=== PATIENT | female | born 1945 | race Caucasian/White ===

== ENCOUNTER 2018-05-29 09:45 | Outpatient (CLI) | payer MEDICARE, BC ==
--- NOTE | 2018-05-29 10:41 | MMO ---
Bilateral MAMMO Bilat Screen [facility]. CLINICAL HISTORY: Patient is 72 years old and is seen for screening. The patient has no family history of breast cancer. The patient has no personal history of cancer. The patient has a history of left Excisional Biopsy in 1974 - BENIGN FINDINGS and left Excisional Biopsy in 1981 - BENIGN FINDINGS. VIEWS: The views performed were: bilateral craniocaudal with tomosynthesis and bilateral mediolateral oblique with tomosynthesis. FILMS COMPARED: The present examination has been compared to prior imaging studies performed at [facility] on 12/09/2000, 06/09/2001, 12/09/2001, 12/10/2002, 01/24/2004, 02/20/2005, 03/12/2006, 03/27/2007, 03/31/2008, 04/15/2009, 04/17/2010, 04/24/2011, 04/29/2012, 05/14/2014, 06/13/2015 and 01/07/2017. MAMMOGRAM FINDINGS: The breasts are heterogeneously dense, which could obscure a lesion on mammography. There are benign appearing calcifications seen in both breasts. There are no suspicious masses, calcifications or areas of architectural distortion. IMPRESSION: CALCIFICATIONS IN BOTH BREASTS ARE BENIGN. A ROUTINE FOLLOW-UP MAMMOGRAM IN 1 YEAR IS RECOMMENDED. THE RESULTS OF THIS EXAM WERE SENT TO THE PATIENT. ACR BI-RADS Category 2 - Benign finding MAMMOGRAPHY NOTE: 1. A negative mammogram report should not delay a biopsy if a dominant of clinically suspicious mass is present. 2. Approximately 10% to 15% of breast cancers are not detected by mammography. 3. Adenosis and dense breasts may obscure an underlying neoplasm.
== END 2018-05-29 09:46 | disposition home or self-care (01) ==
LOC: BICMAMMO 09:45
PROVIDERS: ATTEND Internal Medicine
DX: Z12.31 Encounter for screening mammogram for malignant neoplasm of breast (principal); R92.1 Mammographic calcification found on diagnostic imaging of breast; Z91.89 Other specified personal risk factors, not elsewhere classified
CPT/HCPCS: 77063; 77067

== ENCOUNTER 2024-04-09 08:18 | Outpatient (CLI) | payer MEDICARE | END 2024-04-09 08:19 | disposition home or self-care (01) | LOC: CT 08:18 | PROVIDERS: ATTEND Internal Medicine Nephrology | DX: N18.9 Chronic kidney disease, unspecified (principal); N20.0 Calculus of kidney; E21.0 Primary hyperparathyroidism; R39.198 Other difficulties with micturition | CPT/HCPCS: 36415; 70492; 76770; 78072; 82565 ×2; A9500 ==